=== PATIENT | male | born 1945 | race Caucasian/White ===

== ENCOUNTER → 2017-10-24 | Day surgery (SDC) | payer MEDICARE ==
[2017-10-20 11:11] LABS: BASOPHILS % 0.4 % (0.0-1.0); EOSINOPHILS # (AUTO) 0.1 (0.0-0.4); EOSINOPHILS % 0.8 % (0.0-6.0); HEMOGLOBIN 13.1 g/dL (14.0-18.0); LYMPHOCYTES # (AUTO) 1.3 (1.0-3.2); LYMPHOCYTES % 13.2 % (18.0-39.1); MEAN CORPUSCULAR HEMOGLOBIN 27.5 pg (28-32); MONOCYTES # (AUTO) 0.3 (0.2-0.8); MONOCYTES % 2.7 % (4.4-11.3); NEUTROPHILS # (AUTO) 7.9 (2.1-6.9); NEUTROPHILS % 82.6 % (38.7-80.0); PLATELET COUNT 248 x10e3/uL (140-360); RED BLOOD COUNT 4.77 x10e6/uL (4.3-5.7); RED CELL DISTRIBUTION WIDTH 13.9 % (11.7-14.4)
--- NOTE | 2017-10-20 11:45 | Diagnostic Imaging Report ---
PROCEDURE: Frontal and lateral views of the chest. COMPARISON: None. INDICATIONS: PRE OPERATIVE CHEST X-RAY FOR CYSTOSCOPY FINDINGS: Lines/tubes: None. Limited by body habitus. Lungs: The lungs are well inflated and clear. There is no evidence of pneumonia or pulmonary edema. Pleura: There is no pleural effusion or pneumothorax. Heart and mediastinum: The heart and the mediastinum are normal. Thickened right paratracheal stripe. Bones: No acute bony abnormality. Degenerative changes of thoracic spine. IMPRESSION: 1. No acute cardiopulmonary disease. Dictated by: Getachew Vera M.D. on 10/20/2017 at 11:44 Electronically approved by: Getachew Vera M.D. on 10/20/2017 at 11:44
[~2017-10-24] MED LIST: ASPIRIN81 MG; BUPIVACAINE 0.25% 30ML SDV INJ ONE; CEFTRIAXONE SOD 1 GM VIAL ONE; DEXAMETHASONE SOD PHOS INJ 4 MG/ML VIAL ONE; FENTANYL CITRATE/PF 100MCG/2 ML INJ ONE; FUROSEMIDE40 MG PO; GABAPENTIN400 MG PO; LIDOCAINE HCL 2% LOCAL INJ 5 ML SDV VIAL INJ ONE; LISINOPRIL10 MG PO; LOVASTATIN10 MG; MIDAZOLAM HCL 2 MG/2 ML VIAL ONE; ONDANSETRON HCL INJ 2 MG/ML VIAL ONE; PHENYLEPHRINE HCL 1% 10 MG/ML VIAL ONE; PREDNISONE20 MG PO; PROPOFOL IV EMULSION 10 MG/ML 20 ML VIAL ONE; ROCURONIUM BROMIDE 10 MG/ML 5ML VIAL ONE; SEVOFLURANE INHAL SOLN 250 ML PEN BTL ONE; SUCCINYLCHOLINE 200 MG/10 ML SYR ONE
--- OUTSIDE RECORDS SUMMARY | 2017-10-24 09:47 | XMS REPORT ---
Author Author [facility] Address Unknown Phone Unavailable Care Team Providers Care Glazier Artist Name Role Phone ANJANA MIR Unavailable Unavailable Problems This patient has no known problems. Allergies, Adverse Reactions, Alerts This patient has no known allergies or adverse reactions. Medications This patient has no known medications. Results Test Description Test Time Test Comments Text Results Atomic Results Result Comments CHEST 2 VIEWS [place] [id number] [place] [id number] Patient Name: KEVIN FENTON JR MR #: [id number] : 1945 Age/Sex: 72/M Req # : [id number] Adm Physician: Ordered by: ANJANA MIR MD Report #: [id number] Location: OR Room/Bed: Procedure: [id number] DX/CHEST 2 VIEWS Exam Date: 10/20/17 Exam Time : 1110 REPORT STATUS: Signed PROCEDURE: Frontal and lateral views of the chest. COMPARISON: None. INDICATIONS: PRE OPERATIVE CHEST X- RAY FOR CYSTOSCOPY FINDINGS: Lines/tubes: None. Limited by body habitus. Lungs: The lungs are well inflated and clear. There is no evidence of pneumonia or pulmonary edema. Pleura: There is no pleural effusion or pneumothorax. Heart and mediastinum: The heart and the mediastinum are normal. Thickened right paratracheal stripe. Bones: No acute bony abnormality. Degenerative changes of thoracic spine. IMPRESSION: 1. No acute cardiopulmonary disease. Dictated by: Getachew Vera M.D. on 10/20/2017 at 11:44 Electronically approved by: Getachew Vera M.D. on 10/20/2017 at 11:44 Dictated By: GETACHEW VERA MD [id number] Transcribed By: PATY on 10/20/17 1144 COPY TO: ANJANA MIR MD
--- NOTE | 2017-11-02 09:55 | Operative Report ---
DATE OF PROCEDURE: October 24, 2017 PREOPERATIVE DIAGNOSES: 1. 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 2. Incontinence post prostatectomy. POSTOPERATIVE DIAGNOSES: 1. 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 2. Incontinence post prostatectomy. OPERATIVE PROCEDURES PERFORMED: 1. Circumcision. 2. Cystoscopy. ANESTHESIA: General anesthesia. ESTIMATED BLOOD LOSS: Minimal. INDICATIONS: Mr. Reuben Mehta is a 72-year-old gentleman with a prior history of prostate cancer treated with radical prostatectomy and radiation therapy, who also has BXO with resultant phimosis. He has florid post prostatectomy incontinence, which has not previously been evaluated. He now presents for management of both problems. PROCEDURE IN DETAIL: The patient was brought into the operating room and placed in supine position. After administration of general anesthesia, was prepped and draped in usual sterile fashion. With the prepuce, a small dorsal slit was performed to open up the foreskin and then the foreskin was retracted such that it could get over the penile glands. A circumferential incision was made approximately 5 mm proximal to the glands. A second parallel circumferential incision was made approximately 2.5 cm more proximal to this taking care to incorporate all of the inflamed BXO foreskin. The intervening tissue between these 2 incisions was removed and sent to pathology for microscopic analysis. Once adequate hemostasis was secured, the skin edges were reapproximated and closed using interrupted chromic sutures. Once the wound was clean and dry, the penile block was performed using 0.25% plain Marcaine. Flexible cystoscopy was then performed. This revealed a normal anterior and posterior urethra. The prostatic fossa was opened and empty. The bladder neck was also noted to be completely opened at rest. There were grade 2 trabeculations noted in the bladder without any mucosal lesions identified. The ureteral orifices were in normal anatomical position, somewhat difficult to identify given the bladder trabeculations. The cystoscope and the sheaths were then removed. The penile wound was covered with a circumferential Tegaderm dressing. Anesthesia was reversed, and the patient was transferred to a bed and taken to the postanesthesia care unit in good condition. Of note, the needle and instrument counts were correct at the conclusion of the case. Job#: [id number]
== END | disposition home or self-care (01) ==
LOC: OR 09:44
PROVIDERS: ATTEND Urology
DX: N47.1 Phimosis (principal); N48.0 Leukoplakia of penis; N32.89 Other specified disorders of bladder; R32 Unspecified urinary incontinence; I25.10 Atherosclerotic heart disease of native coronary artery without angina pectoris; I10 Essential (primary) hypertension; B19.20 Unspecified viral hepatitis C without hepatic coma; E11.9 Type 2 diabetes mellitus without complications; E66.01 Morbid (severe) obesity due to excess calories; M19.90 Unspecified osteoarthritis, unspecified site; Z01.810 Encounter for preprocedural cardiovascular examination; Z01.812 Encounter for preprocedural laboratory examination; Z01.818 Encounter for other preprocedural examination; Z79.82 Long term (current) use of aspirin; Z68.33 Body mass index [BMI] 33.0-33.9, adult; Z85.46 Personal history of malignant neoplasm of prostate; Z87.01 Personal history of pneumonia (recurrent); Z87.891 Personal history of nicotine dependence
CPT/HCPCS: 36415; 52000; 54161; 71046; 85025; 88304; 93005; J0696; J1100; J2001; J2250; J2370; J2405; 88305